=== PATIENT | male | born 2000 | race Caucasian/White ===

== ENCOUNTER → 2025-03-17 | Outpatient (CLI) | payer SELFPAY ==
[~2025-03-17] MED LIST: ACET325UDC; AZIT100SU PO; Norco 5-325 Ta1 EACH PO; SULTRIEL PO
== END ==
LOC: LAB 13:23 → LAB SHORT 13:23
DX: S60.561A Insect bite (nonvenomous) of right hand, initial encounter (principal); W57.XXXA Bitten or stung by nonvenomous insect and other nonvenomous arthropods, initial encounter
CPT/HCPCS: 87070; 87075; 87077; 87147; 87186; 87205